=== PATIENT | female | born 1985 | race Hispanic/Latino ===

== ENCOUNTER 2017-10-28 15:58 | Emergency (ER) | payer MEDICAID, OTHER ==
[2017-10-28] MEDS ORDERED: Dexamethasone 4 mg/ml Vial ONE (16:13)
== END 2017-10-28 16:20 | disposition home or self-care (01) ==
LOC: BURERS 15:58
DX: J30.9 Allergic rhinitis, unspecified (principal); I10 Essential (primary) hypertension
CPT/HCPCS: 99283; J1100

== ENCOUNTER 2017-11-07 12:36 | Emergency (ER) | payer MEDICAID ==
[2017-11-07 13:04] LABS: Bilirubin Negative (Negative); Blood, Urine Negative (Negative); Clarity Slightly Cloudy (Clear); Glucose, Urine (Dipstick) Negative (Negative); Leukocyte Negative (Negative); Nitrite Negative (Negative); Protein, Urine (Dipstick) 30 mg/dL (Neg-Trace); Urobilinogen 0.2 mg/dL (0.2-1.0)
[2017-11-07 13:11] LABS: Pregnancy Test - Urine (BHCG) POSITIVE (Negative); Pregu Control Background? CLEAR/WHITE (CLR/WHITE); Pregu Control Bar Appear? YES (CONTROL BAR)
[2017-11-07 13:20] LABS: Bacteria/HPF 1+ HPF (None Seen); Oval Fat Bodies/HPF None Seen HPF (None Seen); RBC/HPF None Seen HPF (0-3); Renal Epithelial None Seen HPF (0-3); Transitional Epithelial NONE SEEN HPF (0-3); Trichomonas/HPF None Seen HPF (None Seen); WBC/HPF 0-3 HPF (0-3); Yeast-All Forms None Seen HPF (None Seen)
[2017-11-07 13:21] LABS: Crystals/HPF None Seen HPF (Negative); Hyaline Casts/LPF NONE SEEN LPF (0-3 Hyaline); Other Casts/LPF None Seen LPF (0-3 Hyaline); Sperm/HPF None Seen HPF (None Seen)
== END 2017-11-07 13:20 | disposition short-term general hospital (02) ==
LOC: BURERS 12:36
DX: O00.90 Unspecified ectopic pregnancy without intrauterine pregnancy (principal); O10.911 Unspecified pre-existing hypertension complicating pregnancy, first trimester; Z3A.01 Less than 8 weeks gestation of pregnancy
CPT/HCPCS: 81003; 81015; 81025; 84702; 99284

== ENCOUNTER 2018-07-12 05:21 | Emergency (ER) | payer MEDICAID ==
[2018-07-12 05:44] LABS: Bilirubin Negative (Negative); Blood, Urine Large (Negative); Glucose, Urine (Dipstick) Negative (Negative); Leukocyte Large (Negative); Nitrite Positive (Negative); Protein, Urine (Dipstick) 30 mg/dL (Neg-Trace); Specific Gravity, Urine 1.025 (1.005-1.030); Urobilinogen 0.2 mg/dL (0.2-1.0); pH, Urine 6.5 (5.0-9.0)
[2018-07-12 05:47] LABS: Bacteria/HPF 4+ HPF (None Seen); Squamous Epithelial 0-3 HPF (0-3); WBC/HPF 21-50 HPF (0-3)
[2018-07-12] MEDS ORDERED: Ketorolac Tromethamine 30 MG/ML VIAL ONE (05:57)
[2018-07-12 06:14] LABS: ALT (SGPT) 53 U/L (8-55); AST (SGOT) 36 U/L (5-34); Albumin 3.8 g/dL (3.5-5.0); Alkaline Phosphatase 81 U/L (40-150); Anion Gap 16 mmol/L (10-20); BUN (Urea Nitrogen) 16 mg/dL (7.0-18.7); Bilirubin, Total 0.5 mg/dL (0.2-1.2); Calc. Creatinine Clearance 0 mL/min (70-130); Calcium 9.3 mg/dL (7.8-10.44); Carbon Dioxide 21 mmol/L (22-29); Chloride 108 mmol/L (98-107); Estimated GFR-MDRD Greater than 90; Globulin 3.5 g/dL (2.4-3.5); Glucose 117 mg/dL (70-105); Lipase 34 U/L (8-78); Potassium 4.2 mmol/L (3.5-5.1); Protein, Total 7.3 g/dL (6.0-8.3); Sodium 141 mmol/L (136-145)
[2018-07-12 06:22] LABS: Band 11 % (5-11); Lymphocytes 14 % (21-51); MDiff Complete? YES; Mean Corpuscular HGB CONC 34.2 g/dL (32.0-36.0); Mean Corpuscular Hemoglobin 28.7 pg (27.0-31.0); Mean Platelet Volume 7.1 fL (7.4-10.4); Monocytes 2 % (0-10); Neutrophil 73 % (42-75); PLT Morphology Comment Appears Adequate; Platelet Count 358 thou/uL (130-400); RBC Distribution Width 11.5 % (11.5-14.5); RBC Morphology Normal; Red Blood Cell (RBC) Count 5.23 mill/uL (4.20-5.40); White Blood Cell (WBC) Count 16.2 thou/uL (4.8-10.8)
[2018-07-12] MEDS ORDERED: Cephalexin 500 MG CAP ONE (07:19)
--- NOTE | 2018-07-12 08:32 | CT ---
PRELIMINARY REPORT/[facility]/EMERGENTY AFTER-HOURS PROCEDURE CT Abdomen and Pelvis With Intravenous Contrast EXAM DATE/TIME: 07/12/2018 6:15 AM CLINICAL HISTORY: 32 years old, female; Pain; Abdominal pain; Localized; Right upper quadrant (ruq); Patient HX: Ruq pa in, R/O appy; Additional info: PT. Is 1.5 weeks TECHNIQUE: Axial computed tomography images of the abdomen and pelvis with intravenous contrast. All CT scans at this facility use at least one of these dose optimization techniques: automated exposure control; mA and/or kV adjustment per patient size (includes targeted exams where dose is matched to clinical indication); or iterative reconstruction. Coronal and sagittal reformatted images were created and reviewed. CONTRAST: 95 ml of ISO 370 administered intravenously. COMPARISON: No relevant prior studies available. FINDINGS: Lower thorax: The lung bases are clear. ABDOMEN: Liver: Unremarkable. Gallbladder and bile ducts: Prior cholecystectomy, no significant biliary tree dilation. Pancreas: Unremarkable. Spleen: Unremarkable. Adrenals: Unremarkable . Kidneys and ureters: Unremarkable. Stomach and bowel: Possibility of slightly thickened mucosa/wall in the distal antrum of the stomach. This is a nonspecific appearance, and could be transient on CT, but could also represent evidence fo r gastritis or peptic ulcer disease. Please correlate clinically. There are no CT findings to strongl y suggest diverticulitis. Appendix: The appendix is visualized and appears normal. PELVIS: Bladder: Unremarkable as visualized. Reproductive: The uterus remains enlarged. Couple of low attenuation within the uterus may represent uterine fibroids, measuring up to 16 mm. Ovaries appear essentially unremarkable by CT. Ovarian veins appear to be opacified with contrast bilaterally. ABDOMEN and PELVIS: Intraperitoneal space: No free air, ascites, or bowel distention. Bones/joints: There is bilateral L5 spondylolysis, no significant/obvious spondylolisthesis. Soft tissues: No significant acute finding. Vasculature: No evidence for abdominal aortic aneurysm. Lymph nodes: No retroperitoneal adenopathy. IMPRESSION: 1. Normal appendix. 2. No free air or bowel distention. 3. Possible thickened mucosa/wall in the distal stomach, see above discussion. 4. Prior cholecystectomy, no significant biliary tree dilation. 5. uterus, possible uterine fibroids, see above. 6. Other findings discussed above. Thank you for allowing us to participate in the care of your patient. Dictated and Authenticated by: Matt Diop MD 07/12/2018 7:06 AM Central Time ([place] & [place]) FINAL REPORT CT ABDOMEN AND PELVIS WITH IV CONTRAST: Date: 07/12/18 FINDINGS/IMPRESSION: I agree with the preliminary report given by Dari. POS: [facility]ADY
[2018-07-13 03:47] LABS: Clarity Hazy (Clear)
== END 2018-07-12 07:25 | disposition home or self-care (01) ==
LOC: BURERS 05:21
DX: N39.0 Urinary tract infection, site not specified (principal); I10 Essential (primary) hypertension; G47.00 Insomnia, unspecified
CPT/HCPCS: 74177; 80053; 81003; 81015; 83690; 85025; 96374; J1885

== ENCOUNTER 2018-11-20 13:58 | Emergency (ER) | payer MEDICAID, SELFPAY ==
[2018-11-20] MEDS ORDERED: AMOXicillin 250 MG CAP ONE (14:18)
== END 2018-11-20 14:26 | disposition home or self-care (01) ==
LOC: BURERS 13:58
DX: J02.9 Acute pharyngitis, unspecified (principal); I10 Essential (primary) hypertension; G47.00 Insomnia, unspecified
CPT/HCPCS: 99283

== ENCOUNTER 2018-12-13 20:45 | Emergency (ER) | payer SELFPAY | END 2018-12-13 21:32 | disposition home or self-care (01) | LOC: BURERS 20:45 | DX: J02.9 Acute pharyngitis, unspecified (principal); I10 Essential (primary) hypertension; G47.00 Insomnia, unspecified | CPT/HCPCS: 87081; 87430; 99283 ==

== ENCOUNTER 2019-01-09 09:58 | Emergency (ER) | payer SELFPAY ==
[2019-01-09 10:20] LABS: Bilirubin Negative (Negative); Blood, Urine Small (Negative); Clarity Slightly Cloudy (Clear); Glucose, Urine (Dipstick) Negative (Negative); Leukocyte Negative (Negative); Nitrite Negative (Negative); Protein, Urine (Dipstick) Negative (Neg-Trace); Specific Gravity, Urine 1.015 (1.005-1.030); Urobilinogen 0.2 mg/dL (0.2-1.0)
[2019-01-09 10:22] LABS: Pregnancy Test - Urine (BHCG) Negative (Negative); Pregu Control Background? CLEAR/WHITE (CLR/WHITE); Pregu Control Bar Appear? YES (CONTROL BAR); Specific Gravity 1.015 (1.002-1.036)
[2019-01-09 10:50] LABS: Bacteria/HPF 1+ HPF (None Seen); RBC/HPF 0-3 HPF (0-3); Renal Epithelial 0-3 HPF (0-3); WBC/HPF 0-3 HPF (0-3)
== END 2019-01-09 10:35 | disposition home or self-care (01) ==
LOC: BURERS 09:58
DX: R10.31 Right lower quadrant pain (principal)
CPT/HCPCS: 81003; 81015; 81025; 99284